=== PATIENT | male | born 1975 | race Caucasian/White ===

== ENCOUNTER 2020-04-10 04:09 | Emergency (ER) | payer OTHER, SELFPAY ==
[2020-04-10 04:21] VITALS: BP 149/112; PULSE 104; RESP 20; TEMP 36.1; O2SAT 100
--- NOTE | 2020-04-10 04:26 | ED.BACK ---
HPI - Back Pain/Injury General Chief Complaint: Back Pain/Injury Stated Complaint: lumbar pain shooting down r leg Time Seen by Provider: 04/10/20 04:26 Source: patient Mode of arrival: wheelchair Limitations: no limitations History of Present Illness HPI Narrative: Patient is a 44-year-old male with a history of chronic lower back pain who presents for worsening of his back pain. Patient reports a 2-week history of gradually worsening lower back pain that starts in the right buttocks, and radiates down the lateral aspect of his right thigh into his knee and calf muscle. Patient reports the pain is sharp, shooting in nature like a spasm, classifies it as burning pain. No recent falls or injuries. No history of cancer. Patient states he has a longstanding history of sciatica for which she has seen a chiropractor in the past. Patient denies any history of cancer. Patient denies any saddle anesthesia, bowel or bladder incontinence or hesitancy. No numbness in his lower extremities. Related Data Allergies Allergy/AdvReac Type Severity Reaction Status Date / Time No Known Allergies Allergy Verified 04/10/20 04:23 Review of Systems Review of Systems: Narrative: CONSTITUTIONAL: Denies fever, chills, or sweats. EYES: Denies visual changes, redness, or discharge. ENT: Denies rhinorrhea, congestion, sore throat, or otalgia. CARDIOVASCULAR: Denies chest pain RESPIRATORY: Denies cough or dyspnea. GASTROINTESTINAL: Denies abdominal pain GENITOURINARY: Denies hesitation, no saddle anesthesia SKIN: Denies rash or itching. MUSCULOSKELETAL: Reports back pain, rigid denies knee pain or myalgias NEUROLOGIC: Denies headache, numbness, or weakness. [facility] Past Medical History Medical History (Updated 04/10/20 @ 06:25 by Ping Reynolds MD) Chronic lower back pain Herniated disc, cervical Surgical History Surgical History (Updated 04/10/20 @ 04:37 by Ping Reynolds MD) Hx of tonsillectomy Social History Social History (Updated 04/10/20 @ 04:37 by Ping Reynolds MD) Smoking status: Never smoker Alcohol intake: never Substance use: never Living arrangements: with family Gender identity (if verbalized by the patient): Male Exam Narrative: Exam Narrative: GENERAL: Awake, alert, conversant, mildly uncomfortable. HEAD: Normocephalic, atraumatic. EYES: PERRLA and EOMI. ENT: Nares clear, no rhinorrhea or epistaxis. Mucous membranes moist. NECK: Supple. CHEST: No respiratory distress, breathing even and non labored HEART: Regular rate, sinus rhythm ABDOMEN:Non distended, non tender Thorax: No midline thoracic or lumbar tenderness. Positive right paraspinal tenderness of the lumbar spine. Positive SI joint tenderness. Positive straight leg raise test. EXTREMITIES: Normal range of motion. No edema. Positive straight leg raise test. Exactly reproduces back pain. Intact sensation distal right lower extremity. Intact EHL/FHL. Strength 5/5 bilateral lower extremities. SKIN: Warm, dry, no rash. NEURO:No focal deficits. Alert and oriented x3 Course Vital Signs Vital signs: Vital Signs Temperature 36.1 C L 04/10/20 04:21 Pulse Rate 104 H 04/10/20 04:21 Respiratory Rate 20 04/10/20 04:21 Blood Pressure 149/112 H 04/10/20 04:21 Pulse Oximetry 100 04/10/20 04:21 Temperature 36.1 C L 04/10/20 04:21 Pulse Rate 104 H 04/10/20 04:21 Respiratory Rate 20 04/10/20 04:21 Blood Pressure 149/112 H 04/10/20 04:21 Pulse Oximetry 100 04/10/20 04:21 MDM - Back Pain/Injury MDM Narrative Medical decision making narrative: Given History and Exam the patient appears to be at low risk for Spinal Cord Compression Syndrome, Vertebral Malignancy/Mets, acute Spinal Fracture, Vertebral Osteomyelitis, Epidural Abscess, Infected or Obstructing Kidney Stone. Their presentation appears most likely to be secondary to non-emergent musculoskeletal etiology vs non-emergent disc herniation. Pain is reproducible, a
[2020-04-10] MEDS: ACETAMINOPHEN 500 MG TABLET 1000 MG PO (05:03)
[2020-04-10] MEDS: predniSONE 20 MG TABLET 60 MG PO (05:03)
[2020-04-10] MEDS: DIAZEPAM 5 MG TABLET PO (05:03)
[2020-04-10] MEDS: KETOROLAC (*BKC) 60 MG/2 ML VIAL 30 MG IM (05:07)
[2020-04-10] MEDS: LIDOCAINE 5% PATCH 1 PATCH TRANSDERM (05:07)
[2020-04-10 06:52] VITALS: BP 114/74; PULSE 77; RESP 20; O2SAT 96
== END 2020-04-10 06:54 | disposition home or self-care (01) ==
PROVIDERS: Emergency Provider Emergency Medicine
DX: M54.16 Radiculopathy, lumbar region (principal); M54.41 Lumbago with sciatica, right side
CPT/HCPCS: 96372; 99283; A9270; J1885; J7512